=== PATIENT | male | born 1940 | race Caucasian/White ===

== ENCOUNTER 2017-08-05 10:29 | Inpatient (IN) | payer MEDICARE ==
[~2017-08-05] VITALS: Ht 170.2 cm; Wt 81.1 kg
[2017-08-05] MEDS ORDERED: MORPHINE SULFATE 4 MG/1ML SYG ONE ×3 (10:48→18:16)
[2017-08-05] MEDS ORDERED: ONDANSETRON HCL MDV 20ML 2 MG/ML VIAL ONE (10:48)
[2017-08-05] MEDS ORDERED: SODIUM CHLORIDE 0.9% 1000ML 1,000 ML IV ONE (10:48)
[2017-08-05 11:06] LABS: BASOPHILS % (AUTO) 0.3 % (0.0-5.0); EOSINOPHILS % (AUTO) 1.3 % (0.0-8.0); HEMATOCRIT 38.9 % (42-54); LYMPHOCYTES % (AUTO) 10.8 % (21.0-51.0); MEAN CORPUSCULAR HEMOGLOBIN 32.6 pg (27.0-33.0); MEAN CORPUSCULAR HGB CONC 34.8 g/dL (32.0-36.0); MEAN CORPUSCULAR VOLUME 93.8 fL (79-99); MONOCYTES % (AUTO) 5.9 % (3.0-13.0); NEUTROPHILS % (AUTO) 81.7 % (40.0-77.0); PLATELET COUNT (AUTO) 247 K/uL (130-400); RED BLOOD CELL COUNT(AUTO) 4.14 MIL/uL (4.50-6.20); RED CELL DISTRIBUTION WIDTH 13.5 % (11.0-15.5); WHITE BLOOD COUNT (AUTO) 9.2 K/uL (4.8-10.8)
[2017-08-05 11:55] LABS: CREATININE 1.1 mg/dL (0.5-1.5); POTASSIUM 3.7 mmol/L (3.5-5.1)
[2017-08-05 11:59] LABS: ALBUMIN 3.7 g/dL (3.5-5.0); BILIRUBIN,TOTAL 0.8 mg/dL (0.2-1.0); TOTAL PROTEIN, SERUM 6.8 g/dL (6.0-8.3)
[2017-08-05] MEDS ORDERED: IOPAMIDOL-370 100 ML VIAL IV ONE (12:35)
[2017-08-05] MEDS ORDERED: DICYCLOMINE HCL 10 MG/ML 2ML AMP IM ONE (12:44)
[2017-08-05 13:06] LABS: APPEARANCE,URINE CLEAR (CLEAR); BILIRUBIN,URINE NEGATIVE (NEGATIVE); COLOR,URINE YELLOW (YELLOW); GLUCOSE, URINE (UA) NEGATIVE (NEGATIVE); KETONES,URINE NEGATIVE (NEGATIVE); LEUKOCYTE ESTERASE ,URINE TRACE (NEGATIVE); NITRATE,URINE POSITIVE (NEGATIVE); OCCULT BLOOD,URINE SMALL (NEGATIVE); PH,URINE 6.5 (5.0-8.0); PROTEIN,URINE NEGATIVE (NEGATIVE)
[2017-08-05 13:26] LABS: BACTERIA,URINE Few /HPF (None Seen); SQUAMOUS EPITHELIAL CELL,UR Rare /HPF (0-2)
[2017-08-05] MEDS ORDERED: KETOROLAC TROMETHAMINE 30MG/ML ONE (13:44)
[2017-08-05] MEDS ORDERED: CEFTRIAXONE SODIUM 1 GM ONE (13:54)
[2017-08-05] MEDS ORDERED: TAMSULOSIN HCL 0.4 MG CAP.ER.24H ONE (14:56)
[2017-08-05 16:00] VITALS: BP 155/84
[2017-08-05] MEDS ORDERED: LEVOFLOXACIN 500 MG/D5W 100 ML 100 ML ONE (18:11)
[2017-08-05] MEDS ORDERED: ACETAMINOPHEN 325 MG TAB PO PRN (18:15)
[2017-08-05] MEDS: LEVOFLOXACIN 500 MG/D5W 100 ML 100 ML IV SCH (18:15)
[2017-08-05] MEDS ORDERED: ONDANSETRON HCL MDV 20ML 2 MG/ML VIAL IVP PRN (18:15)
[2017-08-05] MEDS ORDERED: MORPHINE SULFATE 2 MG/ML 1ML SYG IVP PRN (18:15)
[2017-08-05 19:00] VITALS: BP 103/64
[2017-08-05] MEDS ORDERED: PRED5TAB44 PO (19:40)
[2017-08-05] MEDS ORDERED: ATOR10TA69 PO (19:40)
[2017-08-05] MEDS ORDERED: ABIR250T PO (19:40)
[2017-08-05] MEDS ORDERED: CALC-844 PO (19:40)
[2017-08-05] MEDS ORDERED: CEFTRIAXONE SODIUM 1 GM IVP SCH (22:00)
[2017-08-05] MEDS ORDERED: CEFTRIAXONE 1GM/D5W 50ML 50 ML IV SCH (22:00)
[2017-08-06] VITALS (12 sets, daily range): BP systolic 75–122; BP diastolic 39–74
[2017-08-06] MEDS ORDERED: LIDOCAINE HCL-MPF 1% 2ML VIAL IVP PRN
[2017-08-06] MEDS ORDERED: GLUCAGON 1MG KIT 1 MG ML IM PRN
[2017-08-06] MEDS ORDERED: POTASSIUM CHLORIDE 10% ELIXIR 20 MEQ/15 ML UDCUP PO PRN
[2017-08-06] MEDS ORDERED: MORP4SYR4 IV
[2017-08-06] MEDS ORDERED: POTASSIUM CHLORIDE 20MEQ/100ML 100 ML IV PRN
[2017-08-06] MEDS ORDERED: DEXTROSE 50%-WATER 50 ML DISP.SYRIN IV PRN
[2017-08-06] MEDS ORDERED: KETO30VI4 IM (00:01)
[2017-08-06] MEDS: SODIUM CHLORIDE 0.9% 1000ML 1,000 ML IV SCH ×3 (00:08→04:53)
[2017-08-06] MEDS ORDERED: SODIUM CHLORIDE 0.9% 1000ML 1,000 ML IV SCH ×2 (03:35→03:45)
[2017-08-06 03:52] LABS: HEMATOCRIT 32.7 % (42-54); MEAN CORPUSCULAR HEMOGLOBIN 33.4 pg (27.0-33.0); MEAN CORPUSCULAR HGB CONC 35.7 g/dL (32.0-36.0); MEAN CORPUSCULAR VOLUME 93.5 fL (79-99); PLATELET COUNT (AUTO) 175 K/uL (130-400); RED CELL DISTRIBUTION WIDTH 13.8 % (11.0-15.5); WHITE BLOOD COUNT (AUTO) 14.9 K/uL (4.8-10.8)
[2017-08-06 04:01] LABS: CREATININE 2.4 mg/dL (0.5-1.5)
[2017-08-06 04:05] LABS: HEMOGLOBIN A1C 5.9 % (4.0-6.0)
[2017-08-06] MEDS ORDERED: INSULIN HUMULIN R 100 UNIT/ML 3ML SQ SCH (07:30)
[2017-08-06] MEDS: CALCIUM 600 + VITAMIN D 400 TABLET PO SCH ×2 (08:51→21:37)
[2017-08-06] MEDS: PREDNISONE 5 MG TABLET PO SCH (08:51)
[2017-08-06] MEDS: ABIRATERONE ACETATE 250 MG PO SCH (09:00)
[2017-08-06] MEDS ORDERED: MEROPENEM 1GM IVPB PREMIXED 1 GM IV SCH (09:00)
[2017-08-06] MEDS ORDERED: MEROPENEM 500 MG VIAL ONE (09:40)
[2017-08-06] MEDS ORDERED: MORPHINE SULFATE 4 MG/1ML SYG ONE (09:41)
[2017-08-06] MEDS: MEROPENEM 500 MG VIAL IVP SCH ×2 (09:42→21:37)
[2017-08-06] MEDS ORDERED: TAMSULOSIN HCL 0.4 MG CAP.ER.24H PO SCH (10:56)
[2017-08-06] MEDS ORDERED: MEPERIDINE HCL/PF 25 MG/0.5 ML AMPUL IVP PRN (11:00)
[2017-08-06] MEDS: ATORVASTATIN CALCIUM 10 MG TABLET PO SCH (16:16)
[2017-08-06] MEDS: MEPERIDINE HCL/PF 25 MG/0.5 ML AMPUL IVP PRN ×2 (16:23→22:26)
[2017-08-07] VITALS (8 sets, daily range): BP systolic 114–150; BP diastolic 59–75
[2017-08-07] MEDS: SODIUM CHLORIDE 0.9% 1000ML 1,000 ML IV SCH ×3 (02:36→23:57)
[2017-08-07] MEDS: MEPERIDINE HCL/PF 25 MG/0.5 ML AMPUL IVP PRN ×6 (02:40→23:47)
[2017-08-07 05:54] LABS: BASOPHILS % (AUTO) 0.2 % (0.0-5.0); EOSINOPHILS % (AUTO) 0.5 % (0.0-8.0); HEMATOCRIT 30.9 % (42-54); LYMPHOCYTES % (AUTO) 4.2 % (21.0-51.0); MEAN CORPUSCULAR HEMOGLOBIN 32.1 pg (27.0-33.0); MEAN CORPUSCULAR HGB CONC 34.3 g/dL (32.0-36.0); MEAN CORPUSCULAR VOLUME 93.7 fL (79-99); MONOCYTES % (AUTO) 6.7 % (3.0-13.0); NEUTROPHILS % (AUTO) 88.4 % (40.0-77.0); PLATELET COUNT (AUTO) 141 K/uL (130-400); RED CELL DISTRIBUTION WIDTH 13.5 % (11.0-15.5); WHITE BLOOD COUNT (AUTO) 13.4 K/uL (4.8-10.8)
[2017-08-07 05:59] LABS: CREATININE 1.4 mg/dL (0.5-1.5); POTASSIUM 3.9 mmol/L (3.5-5.1)
[2017-08-07] MEDS: PREDNISONE 5 MG TABLET PO SCH (08:00)
[2017-08-07] MEDS: MEROPENEM 500 MG VIAL IVP SCH ×2 (09:28→20:29)
[2017-08-07] MEDS ORDERED: GLYCOPYRROLATE 0.2 MG/ML 5 ML VIAL ONE (10:56)
[2017-08-07] MEDS ORDERED: DEXAMETHASONE SOD PHOSPHATE 10MG/ML 1ML VIAL ONE (10:56)
[2017-08-07] MEDS ORDERED: LIDOCAINE PF 2% 5ML ABBOJECT ONE (10:56)
[2017-08-07] MEDS ORDERED: MIDAZOLAM HCL 1 MG/ML 2ML VIAL ONE (10:57)
[2017-08-07] MEDS ORDERED: PROPOFOL 10 MG/ML 20ML VIAL IV ONE (10:57)
[2017-08-07] MEDS ORDERED: FENTANYL CITRATE PF 50 MCG/1 ML 2ML VIAL ONE (10:57)
[2017-08-07] MEDS ORDERED: IOPAMIDOL-370 75 ML VIAL IV ONE (11:47)
[2017-08-07] MEDS: CALCIUM 600 + VITAMIN D 400 TABLET PO SCH ×2 (15:27→20:29)
[2017-08-07] MEDS: TAMSULOSIN HCL 0.4 MG CAP.ER.24H PO SCH (15:27)
[2017-08-07] MEDS: ABIRATERONE ACETATE 250 MG PO SCH (15:28)
[2017-08-07] MEDS: ATORVASTATIN CALCIUM 10 MG TABLET PO SCH (17:23)
[2017-08-08] VITALS (22 sets, daily range): BP systolic 120–156; BP diastolic 60–86
[2017-08-08] MEDS: MEPERIDINE HCL/PF 25 MG/0.5 ML AMPUL IVP PRN ×3 (04:23→19:23)
[2017-08-08 05:09] LABS: BASOPHILS % (AUTO) 0.2 % (0.0-5.0); EOSINOPHILS % (AUTO) 1.9 % (0.0-8.0); HEMATOCRIT 28.1 % (42-54); LYMPHOCYTES % (AUTO) 3.9 % (21.0-51.0); MEAN CORPUSCULAR HEMOGLOBIN 33.8 pg (27.0-33.0); MEAN CORPUSCULAR HGB CONC 36.2 g/dL (32.0-36.0); MEAN CORPUSCULAR VOLUME 93.4 fL (79-99); PLATELET COUNT (AUTO) 132 K/uL (130-400); RED BLOOD CELL COUNT(AUTO) 3.01 MIL/uL (4.50-6.20); RED CELL DISTRIBUTION WIDTH 13.1 % (11.0-15.5); WHITE BLOOD COUNT (AUTO) 10.1 K/uL (4.8-10.8)
[2017-08-08 05:28] LABS: CREATININE 0.9 mg/dL (0.5-1.5); PHOSPHORUS 2.2 mg/dL (2.5-4.9); POTASSIUM 3.6 mmol/L (3.5-5.1); URIC ACID 2.9 mg/dL (2.6-7.2)
[2017-08-08] MEDS: PREDNISONE 5 MG TABLET PO SCH (08:00)
[2017-08-08] MEDS: CALCIUM 600 + VITAMIN D 400 TABLET PO SCH ×2 (08:45→20:14)
[2017-08-08] MEDS: ABIRATERONE ACETATE 250 MG PO SCH (08:46)
[2017-08-08] MEDS: SODIUM CHLORIDE 0.9% 1000ML 1,000 ML IV SCH (10:14)
[2017-08-08] MEDS: MEROPENEM 500 MG VIAL IVP SCH ×2 (10:14→17:56)
[2017-08-08] MEDS ORDERED: LACTATED RINGERS 1000ML 1,000 ML IV ONE (10:39)
[2017-08-08] MEDS ORDERED: ISOVUE-370 50ML VIAL IV ONE (11:12)
[2017-08-08] MEDS ORDERED: PROPOFOL 10 MG/ML 20ML VIAL IV ONE (12:13)
[2017-08-08] MEDS: FOLIC ACID/VITAMIN B COMP W-C 1 MG CAPSULE PO SCH (17:55)
[2017-08-08] MEDS: ATORVASTATIN CALCIUM 10 MG TABLET PO SCH (17:56)
[2017-08-08] MEDS: TAMSULOSIN HCL 0.4 MG CAP.ER.24H PO SCH (17:56)
[2017-08-08] MEDS ORDERED: LACTULOSE 20 GM/30 ML UDCUP PO PRN (18:45)
[2017-08-09] MEDS: SODIUM CHLORIDE 0.9% 1000ML 1,000 ML IV SCH (02:45)
[2017-08-09 03:00] VITALS: BP 121/67
[2017-08-09 04:39] LABS: BASOPHILS % (AUTO) 0.4 % (0.0-5.0); EOSINOPHILS % (AUTO) 1.9 % (0.0-8.0); HEMATOCRIT 28.3 % (42-54); LYMPHOCYTES % (AUTO) 4.7 % (21.0-51.0); MEAN CORPUSCULAR HEMOGLOBIN 32.9 pg (27.0-33.0); MEAN CORPUSCULAR HGB CONC 35.8 g/dL (32.0-36.0); MEAN CORPUSCULAR VOLUME 91.7 fL (79-99); NUCLEATED RED BLOOD CELLS 0.1 % (0.0-0.19); PLATELET COUNT (AUTO) 164 K/uL (130-400); RED BLOOD CELL COUNT(AUTO) 3.09 MIL/uL (4.50-6.20); RED CELL DISTRIBUTION WIDTH 12.7 % (11.0-15.5)
[2017-08-09 04:57] LABS: CREATININE 0.9 mg/dL (0.5-1.5); MAGNESIUM 1.7 mg/dL (1.80-2.40)
[2017-08-09] MEDS: POTASSIUM CHLORIDE 20 MEQ ERTAB PO PRN ×2 (05:40→10:27)
[2017-08-09 08:00] VITALS: BP 125/66
[2017-08-09] MEDS: ABIRATERONE ACETATE 250 MG PO SCH (09:00)
[2017-08-09] MEDS: MEROPENEM 500 MG VIAL IVP SCH (09:27)
[2017-08-09] MEDS: FOLIC ACID/VITAMIN B COMP W-C 1 MG CAPSULE PO SCH (09:28)
[2017-08-09] MEDS: CALCIUM 600 + VITAMIN D 400 TABLET PO SCH (09:28)
[2017-08-09] MEDS: TAMSULOSIN HCL 0.4 MG CAP.ER.24H PO SCH (09:28)
[2017-08-09] MEDS: PREDNISONE 5 MG TABLET PO SCH (09:28)
[2017-08-09 11:00] VITALS: BP 140/67
[2017-08-09] MEDS ORDERED: TYL3 PO (11:07)
[2017-08-09] MEDS ORDERED: LEVO500T2 PO (11:07)
[2017-08-21] MEDS ORDERED: ASPI-1026 PO (09:47)
== END 2017-08-09 13:18 | disposition home or self-care (01) | DRG 872 ==
LOC: EDH 10:29 → EDHIP 14:55 → OBSVTOIN 14:55 → 3AH 15:41
PROVIDERS: ADMIT Internal Medicine Nephrology; ATTEND Internal Medicine Nephrology
PROC: BT1F1ZZ Fluoroscopy of Left Kidney, Ureter and Bladder using Low Osmolar Contrast (ICD-10-PCS; principal; 2017-08-08 12:10)
PROC: 0T778DZ Dilation of Left Ureter with Intraluminal Device, Via Natural or Artificial Opening Endoscopic (ICD-10-PCS; 2017-08-08 12:10)
DX: A41.9 Sepsis, unspecified organism (principal); N17.9 Acute kidney failure, unspecified; E11.22 Type 2 diabetes mellitus with diabetic chronic kidney disease; D64.9 Anemia, unspecified; N39.0 Urinary tract infection, site not specified; N13.2 Hydronephrosis with renal and ureteral calculous obstruction; E66.9 Obesity, unspecified; B96.4 Proteus (mirabilis) (morganii) as the cause of diseases classified elsewhere; I12.9 Hypertensive chronic kidney disease with stage 1 through stage 4 chronic kidney disease, or unspecified chronic kidney disease; I25.10 Atherosclerotic heart disease of native coronary artery without angina pectoris; N18.9 Chronic kidney disease, unspecified; I25.2 Old myocardial infarction; Z68.28 Body mass index [BMI] 28.0-28.9, adult; Z95.1 Presence of aortocoronary bypass graft; Z90.79 Acquired absence of other genital organ(s); Z87.442 Personal history of urinary calculi; Z85.46 Personal history of malignant neoplasm of prostate; Z85.118 Personal history of other malignant neoplasm of bronchus and lung; Z80.1 Family history of malignant neoplasm of trachea, bronchus and lung; Z80.0 Family history of malignant neoplasm of digestive organs
CPT/HCPCS: 36415; 74177; 74400; 74420; 80048; 80053; 81001; 83036; 83605; 83690; 83735; 83970; 84100; 84550; 85025; 85027; 87040; 87088; 87186; 93005; A4218; A4344; C1758; C1769; C2617; J0500; J0696; J1100; J1885; J1956; J2001; J2175; J2185; J2250; J2270; J2704; J3010; J3480; J3490; J7030; J7120; J7512; Q9967

== ENCOUNTER 2017-08-22 05:29 | Observation (INO) | payer MEDICARE ==
[2017-08-21 09:28] VITALS: BP 140/67
[2017-08-21 09:43] LABS: HEMATOCRIT 34.8 % (42-54); MEAN CORPUSCULAR HEMOGLOBIN 32.9 pg (27.0-33.0); MEAN CORPUSCULAR HGB CONC 35.3 g/dL (32.0-36.0); MEAN CORPUSCULAR VOLUME 93.1 fL (79-99); PLATELET COUNT (AUTO) 519 K/uL (130-400); RED BLOOD CELL COUNT(AUTO) 3.73 MIL/uL (4.50-6.20); RED CELL DISTRIBUTION WIDTH 13.3 % (11.0-15.5); WHITE BLOOD COUNT (AUTO) 7.8 K/uL (4.8-10.8)
[2017-08-21 09:50] LABS: CREATININE 1.2 mg/dL (0.5-1.5); POTASSIUM 3.5 mmol/L (3.5-5.1)
[2017-08-21 09:57] LABS: INR 0.98 (0.85-1.15); PARTIAL THROMBOPLASTIN TIME 23.7 SEC (26.3-35.5); PROTHROMBIN TIME 10.3 SEC (9.6-11.6)
[2017-08-21 09:57] LABS: APPEARANCE,URINE Clear (CLEAR); BILIRUBIN,URINE Negative (NEGATIVE); COLOR,URINE Yellow (YELLOW); GLUCOSE, URINE (UA) Negative (NEGATIVE); KETONES,URINE Negative (NEGATIVE); LEUKOCYTE ESTERASE ,URINE Trace (NEGATIVE); NITRATE,URINE Negative (NEGATIVE); OCCULT BLOOD,URINE Negative (NEGATIVE); PH,URINE 7.5 (5.0-8.0); PROTEIN,URINE Negative (NEGATIVE); UROBILINOGEN,URINE 0.2 mg/dL (0.2-1.0)
[2017-08-21 10:33] LABS: RBC,URINE None Seen /HPF (0-1); WBC,URINE 0-1 /HPF (0-1)
[2017-08-21 10:34] LABS: BACTERIA,URINE Rare /HPF (None Seen); SQUAMOUS EPITHELIAL CELL,UR 0-2 /HPF (0-2)
[2017-08-22] VITALS (27 sets, daily range): BP systolic 111–152; BP diastolic 63–79
[~2017-08-22] VITALS: Ht 154.9 cm; Wt 69.8 kg
[~2017-08-22 05:29] MED LIST: ABIR250T PO; ASPI-1026 PO; ATOR10TA69 PO; CALC-844 PO; PRED5TAB44 PO
[2017-08-22] MEDS ORDERED: HYDROCORTISONE SOD SUCCINATE 100 MG/2 ML VIAL ONE (05:49)
[2017-08-22] MEDS: LACTATED RINGERS 1000ML 1,000 ML IV SCH ×3 (06:19→07:54)
[2017-08-22] MEDS: CEFAZOLIN SODIUM 1 GM VIAL IVP SCH ×4 (06:20→22:25)
[2017-08-22] MEDS ORDERED: FENTANYL CITRATE PF 50 MCG/1 ML 2ML VIAL ONE (06:52)
[2017-08-22] MEDS ORDERED: PROPOFOL 10 MG/ML 20ML VIAL IV ONE (06:52)
[2017-08-22] MEDS ORDERED: GLYCOPYRROLATE 0.2 MG/ML 5 ML VIAL ONE (06:52)
[2017-08-22] MEDS ORDERED: MIDAZOLAM HCL 1 MG/ML 2ML VIAL ONE (06:52)
[2017-08-22] MEDS ORDERED: LIDOCAINE PF 2% 5ML ABBOJECT ONE (06:52)
[2017-08-22] MEDS ORDERED: DEXAMETHASONE SOD PHOSPHATE 10MG/ML 1ML VIAL ONE (06:52)
[2017-08-22] MEDS: HYDROCORTISONE SOD SUCCINATE 100 MG/2 ML VIAL IV SCH ×2 (07:05→07:30)
[2017-08-22] MEDS ORDERED: ISOVUE-370 50ML VIAL IV ONE (07:10)
[2017-08-22] MEDS ORDERED: EPHEDRINE SULFATE 50 MG/ML AMPULE ONE (07:20)
[2017-08-22] MEDS ORDERED: MORPHINE SULFATE 4 MG/1ML SYG ONE (08:10)
[2017-08-22] MEDS ORDERED: ACETAMINOPHEN-CODEINE 300/30MG TAB PO PRN (15:45)
[2017-08-22] MEDS ORDERED: ACETAMINOPHEN 325 MG TAB PO PRN (15:45)
[2017-08-22] MEDS ORDERED: ONDANSETRON HCL MDV 20ML 2 MG/ML VIAL IVP PRN (15:45)
[2017-08-22] MEDS ORDERED: LACTATED RINGERS 1000ML 1,000 ML IV SCH (15:45)
[2017-08-22] MEDS ORDERED: MEPERIDINE-PF 75 MG/ML SYG IM PRN (15:45)
[2017-08-22] MEDS ORDERED: CALCIUM 600 + VITAMIN D 400 TABLET PO SCH (17:00)
[2017-08-22] MEDS ORDERED: ABIRATERONE ACETATE PO SCH (17:00)
[2017-08-22] MEDS ORDERED: ATORVASTATIN CALCIUM 10 MG TABLET PO SCH (21:00)
[2017-08-23] VITALS: BP 107/55
[2017-08-23 04:00] VITALS: BP 126/86
[2017-08-23 05:13] LABS: HEMATOCRIT 30.3 % (42-54); MEAN CORPUSCULAR HGB CONC 35.9 g/dL (32.0-36.0); MEAN CORPUSCULAR VOLUME 91.9 fL (79-99); PLATELET COUNT (AUTO) 391 K/uL (130-400); RED CELL DISTRIBUTION WIDTH 13.1 % (11.0-15.5); WHITE BLOOD COUNT (AUTO) 10.1 K/uL (4.8-10.8)
[2017-08-23 05:18] LABS: POTASSIUM 3.7 mmol/L (3.5-5.1)
[2017-08-23 05:48] LABS: BAND NEUTROPHILS % (MANUAL) 3 % (0-2); LYMPHOCYTES % (MANUAL) 5 % (22-44); MAN.DIFF COMMENT-IMPRESSION MANUAL DIFFERENTIAL; MONOCYTES % (MANUAL) 4 % (2-9); PLATELET MORPHOLOGY COMMENT ADEQUATE; REACTIVE LYMPHOCYTES 2 % (0-0); SEGMENTED NEUTROPHILS % 86 % (40-70)
[2017-08-23 08:00] VITALS: BP 140/53
[2017-08-23] MEDS ORDERED: PREDNISONE 5 MG TABLET PO SCH (08:00)
[2017-08-23] MEDS ORDERED: ASPIRIN 325 MG TABLET PO SCH (09:00)
[2017-08-23] MEDS: CEFAZOLIN SODIUM 1 GM VIAL IVP SCH (10:02)
[2017-08-23 11:50] VITALS: BP 130/63
[2017-08-23] MEDS: LACTATED RINGERS 1000ML 1,000 ML IV SCH (12:24)
[2017-08-23] MEDS ORDERED: CEPH-578 PO (13:15)
== END 2017-08-23 14:55 | disposition home or self-care (01) ==
LOC: DAH 05:29 → SUH 05:29 → DAHIP 05:30 → SUH 05:30 → 4BH 14:14
PROVIDERS: ADMIT Urology; ATTEND Urology
DX: N13.2 Hydronephrosis with renal and ureteral calculous obstruction (principal); C61 Malignant neoplasm of prostate; H91.90 Unspecified hearing loss, unspecified ear; Z95.1 Presence of aortocoronary bypass graft; Z90.49 Acquired absence of other specified parts of digestive tract; Z90.79 Acquired absence of other genital organ(s); C78.00 Secondary malignant neoplasm of unspecified lung
CPT/HCPCS: 36415 ×2; 52332; 71046; 74420; 80048 ×2; 81001; 82360; 85025; 85027; 85610; 85730; 87088; 88300; 93005; 96374; 96376 ×2; A4218 ×3; A4344; A4354; A4358; A4930; A6207; C1751; C1769; C1894; C2617; G0378 ×33; J0690 ×4; J1100; J1720 ×2; J2001; J2250; J2270; J2704; J3010; J3490 ×2; J7120 ×6; J7512; Q9967

== ENCOUNTER → 2022-08-15 | Outpatient (CLI) | payer MEDICARE ==
[~2022-08-15] MED LIST changes: -ABIR250T PO; +ALPR0.255 PO; -ASPI-1026 PO; -ATOR10TA69 PO; -CALC-844 PO; +CYAN1TAB72 PO; -PRED5TAB44 PO; +RIVA2.5T PO
[2022-08-15 12:53] LABS: ALBUMIN 3.4 g/dL (3.5-5.0); CREATININE 1.1 mg/dL (0.5-1.5); POTASSIUM 3.9 mmol/L (3.5-5.1); TOTAL PROTEIN, SERUM 6.5 g/dL (6.0-8.3)
== END | disposition home or self-care (01) ==
LOC: LAB 09:22
PROVIDERS: ATTEND Internal Medicine Cardiovascular Disease
DX: I10 Essential (primary) hypertension (principal); I73.9 Peripheral vascular disease, unspecified
CPT/HCPCS: 36415; 80053; 80061

== ENCOUNTER → 2024-07-09 | Outpatient (CLI) | payer MEDICARE ==
[2024-07-09 12:29] LABS: CHOLESTEROL 152 mg/dL (<200); HDL CHOLESTEROL 69 mg/dL (29-71); LDL DIRECT 48 mg/dL (0-99); TRIGLYCERIDES 163 mg/dL (30-200)
== END | disposition home or self-care (01) ==
LOC: LAB 08:44
PROVIDERS: ATTEND Internal Medicine Cardiovascular Disease
DX: I10 Essential (primary) hypertension (principal); E78.5 Hyperlipidemia, unspecified
CPT/HCPCS: 36415; 80061

== ENCOUNTER → 2024-08-09 | Outpatient (CLI) | payer MEDICARE ==
[2024-08-09 12:21] LABS: BASOPHILS # (AUTO) 0.05 K/uL (0.00-0.20); BASOPHILS % (AUTO) 0.6 % (0.0-5.0); EOSINOPHILS # (AUTO) 0.14 K/uL (0.00-0.70); EOSINOPHILS % (AUTO) 1.8 % (0.0-8.0); HEMATOCRIT 39.2 % (42-54); IMMATURE GRANULOCYTE ABSOLUTE 0.04 K/uL (0-1); LYMPHOCYTES # (AUTO) 1.2 K/uL (1.0-4.8); LYMPHOCYTES % (AUTO) 15.8 % (21.0-51.0); MEAN CORPUSCULAR HEMOGLOBIN 31.3 pg (27.0-33.0); MEAN CORPUSCULAR HGB CONC 32.1 g/dL (32.0-36.0); MEAN CORPUSCULAR VOLUME 97.5 fL (79-99); MONOCYTES # (AUTO) 0.6 K/uL (0.1-1.0); MONOCYTES % (AUTO) 7.5 % (3.0-13.0); NEUTROPHILS # (AUTO) 5.7 K/uL (1.8-7.7); NEUTROPHILS % (AUTO) 73.8 % (40.0-77.0); PLATELET COUNT (AUTO) 284 K/uL (130-400); RED BLOOD CELL COUNT(AUTO) 4.02 MIL/uL (4.50-6.20); RED CELL DISTRIBUTION WIDTH 12.9 % (11.0-15.5); WHITE BLOOD COUNT (AUTO) 7.7 K/uL (4.8-10.8)
[2024-08-09 12:46] LABS: ALBUMIN 3.4 g/dL (3.5-5.0); BILIRUBIN,TOTAL 0.7 mg/dL (0.2-1.0); CREATININE 1.1 mg/dL (0.5-1.3); POTASSIUM 4.9 mmol/L (3.5-5.1); TOTAL PROTEIN, SERUM 6.8 g/dL (6.0-8.3)
== END | disposition home or self-care (01) ==
LOC: LAB 08:15
PROVIDERS: ATTEND Internal Medicine Cardiovascular Disease
DX: E78.5 Hyperlipidemia, unspecified (principal)
CPT/HCPCS: 36415; 80053; 80061; 85025